=== PATIENT | male | born 1960 | race Caucasian/White ===

== ENCOUNTER 2017-03-04 23:37 | Emergency (ER) | payer OTHER ==
[~2017-03-04] VITALS: Ht 177.8 cm; Wt 117.0 kg
[~2017-03-04 23:37] MED LIST: APAP/HYDROCODON1 T15 PO; COLCHICINE0.6 MG PO; COZ50 PO; HYDROCHLOROTH12.5 M2 PO; LOSARTAN POTASS1 TA6 PO; SIMVASTATIN10 M1 PO
[2017-03-05 03:19] VITALS: BP 134/65
== END 2017-03-05 03:19 | disposition home or self-care (01) ==
LOC: ED 23:37
DX: J40 Bronchitis, not specified as acute or chronic (principal); J06.9 Acute upper respiratory infection, unspecified; M10.9 Gout, unspecified; E78.00 Pure hypercholesterolemia, unspecified; Z79.899 Other long term (current) drug therapy